=== PATIENT | male | born 1980 | race Caucasian/White ===

== ENCOUNTER → 2022-12-23 10:10 | Outpatient (CLI) | payer OTHER, SELFPAY ==
--- NOTE | 2022-12-23 | DI.RAD.S_ITS ---
PROCEDURE: XR LUMBAR SPINE 2-3V INDICATIONS: BACK PAIN TECHNIQUE: 3 views of the lumbar spine were acquired. COMPARISON: None. FINDINGS: Bones: 5 [id number] vertebrae are present. No significant curvature of the lumbar spine. 3 millimeters retrolisthesis L3 on L4, 3 millimeters retrolisthesis L2 on L3. No vertebral body compression fractures. Mild-moderate multilevel degenerative changes with disc height loss, endplate spurring, and facet arthropathy. Soft tissues: Overlying bowel gas pattern is normal. No suspicious soft tissue calcifications. IMPRESSION: Mild-moderate degenerative changes of the lumbar spine. Dictated by: Tani Rushing M.D. on 12/23/2022 at 13:28 Approved by: Tani Rushing M.D. on 12/23/2022 at 13:41
--- NOTE | 2022-12-23 | DI.RAD.S_ITS ---
PROCEDURE: XR CERVICAL SPINE 2V OR 3V INDICATIONS: BACK PAIN TECHNIQUE: 3 view(s) of the cervical spine were acquired. COMPARISON: None. FINDINGS: Bones: No definite acute fractures or dislocations to the C7 level. The lateral masses of C1 appear intact on the odontoid view. No suspicious bony lesions. 3 millimeters anterolisthesis C4 on C5. Mild multilevel degenerative changes with disc height loss, endplate spurring, and facet arthropathy. Soft tissues: No prevertebral soft tissue swelling. IMPRESSION: Mild degenerative changes of the cervical spine. Dictated by: Tani Rushing M.D. on 12/23/2022 at 13:24 Approved by: Tani Rushing M.D. on 12/23/2022 at 13:28
== END ==
PROVIDERS: Referring Provider Internal Medicine Cardiovascular Disease; Visit Provider Internal Medicine Cardiovascular Disease
DX: M47.812 Spondylosis without myelopathy or radiculopathy, cervical region (principal); M47.816 Spondylosis without myelopathy or radiculopathy, lumbar region; M54.50 Low back pain, unspecified; M54.2 Cervicalgia
CPT/HCPCS: 72040; 72100